=== PATIENT | female | born 1970 | race Asian ===

== ENCOUNTER 2020-07-19 16:51 | Emergency (ER) | payer SELFPAY ==
[~2020-07-19] VITALS: Ht 154.9 cm; Wt 54.5 kg
[2020-07-19] MEDS ORDERED: DIPH25CA85 PO (17:03)
[2020-07-19] MEDS ORDERED: ACET-2247 PO (17:03)
[2020-07-19] MEDS ORDERED: ACETAMINOPHEN 325 MG TABLET PO ONE (17:30)
[2020-07-19] MEDS ORDERED: KETOROLAC TROMETHAMINE 30 MG/ML VIAL IVP ONE (17:30)
[2020-07-19] MEDS ORDERED: SODIUM CHLORIDE 0.9% 1,000 ML IV ONE (17:30)
[2020-07-19] MEDS ORDERED: ONDANSETRON HCL 4 MG/2 ML VIAL IVP ONE (17:30)
[2020-07-19 17:49] LABS: HEMATOCRIT 37.8 % (36-46); HEMOGLOBIN 12.6 g/dL (12.0-16.0); MEAN CORPUSCULAR HEMOGLOBIN 30.1 pg (26.0-34.0); MEAN CORPUSCULAR HGB CONC 33.5 G/dL (31.0-37.0); MEAN CORPUSCULAR VOLUME 90 fL (80-100); PLATELET COUNT (AUTO) 232 K/uL (150-450); RED CELL DISTRIBUTION WIDTH 12.5 % (11.5-14.5)
[2020-07-19 18:15] LABS: CALCIUM, TOTAL 9.3 mg/dL (8.8-10.5); CREATININE 1.11 mg/dL (0.60-1.30); POTASSIUM 3.1 mmol/L (3.5-5.1)
[2020-07-19 18:19] LABS: BAND NEUTROPHILS % (MANUAL) 10 % (0-5); EOSINOPHILS % (MANUAL) 1 % (1-6); LYMPHOCYTES % (MANUAL) 11 % (22-44); MONOCYTES % (MANUAL) 8 % (2-9); SEGMENTED NEUTROPHILS % 70 % (40-70)
[2020-07-19 18:32] LABS: LACTIC ACID 1.8 mmol/L (0.4-2.0)
[2020-07-19] MEDS ORDERED: POTASSIUM CHL 20 MEQ/0.9% NS 1,000 ML IV ONE (19:00)
[2020-07-19 20:01] LABS: APPEARANCE,URINE CLOUDY (CLEAR); BILIRUBIN,URINE NEGATIVE (NEGATIVE); GLUCOSE, URINE (UA) NEGATIVE (NEGATIVE); KETONES,URINE NEGATIVE (NEGATIVE); LEUKOCYTE ESTERASE ,URINE LARGE (NEGATIVE); NITRATE,URINE POSITIVE (NEGATIVE); OCCULT BLOOD,URINE LARGE (NEGATIVE); PROTEIN,URINE POS 1+ (NEGATIVE)
[2020-07-19 20:26] LABS: RBC,URINE 51-100 /HPF (0-2)
[2020-07-19 20:27] LABS: BACTERIA,URINE Moderate /HPF (None Seen); SQUAMOUS EPITHELIAL CELL,UR Few /LPF (None Seen)
[2020-07-19] MEDS ORDERED: CefTRIAXone 1 GM/DEXTROSE 50 ML IV ONE (20:30)
[2020-07-19 21:30] VITALS: BP 116/71
== END 2020-07-19 21:58 | disposition home or self-care (01) ==
LOC: EMS 16:53
DX: N39.0 Urinary tract infection, site not specified (principal); R30.0 Dysuria; Z79.899 Other long term (current) drug therapy
CPT/HCPCS: 36415; 74176; 80048; 81001; 83605; 85025; 87086; 96360; 96361; 96365; 96366; 96375; 99284; J0696; J1885; J2405; J3480; J7030